=== PATIENT | male | born 1990 | race Caucasian/White ===

== ENCOUNTER 2017-03-31 20:38 | Emergency (ER) | payer SELFPAY ==
--- NOTE | 2017-03-31 21:04 | EDM.PDOC ---
ED HPI GENERAL MEDICAL PROBLEM - General Chief Complaint: Genitourinary Problem Stated Complaint: "Penis Injury Time Seen by Provider: 03/31/17 20:42 Source of Information: Reports: Patient History Limitations: Reports: No Limitations - History of Present Illness INITIAL COMMENTS - FREE TEXT/NARRATIVE: This patient is a 27 year old male that presents to the ER. Patient reports that he was having sex with his girlfriend 4 days ago. Patient reports she was on top, the penis came out of her, then she went back down on top of him bending his penis. Patient reports he had some pain with this action. Patient reports there was no popping, or sounds. Patient reports they continued intercourse. Patient reports he felt some swelling the next day and pain to shaft of penis. Patient reports that the swelling has gone down. Patient reports he had sex again last night with mild pain. Patient reports the pain is improving. Patient denies bruising. Patient reports able to have erection without difficulty. Denies any other pain or injury. No pain to testes. Denies n , v, d, f, hematuria. Onset Date: 03/27/17 Duration: Day(s): (4) Location: Reports: Other (Penis) Quality: Reports: Ache Severity: Mild Improves with: Reports: None Worsens with: Reports: Other (sex) Associated Symptoms: Denies: Confusion, Chest Pain, Cough, cough w sputum, Diaphoresis, Fever/Chills, Headaches, Loss of Appetite, Malaise, Nausea/Vomiting , Rash, Seizure, Shortness of Breath, Syncope, Weakness - Related Data Allergies Allergy/AdvReac Type Severity Reaction Status Date / Time No Known Allergies Allergy Verified 09/25/14 21:48 Home Meds: Home Meds Ibuprofen 1 - 2 tab PO Q6H PRN 09/25/14 [History] Past Medical History - Past Health History Medical/Surgical History: Denies Medical/Surgical History Social & Family History - Family History Family Medical History: Noncontributory - Tobacco Use Smoking Status *Q: Current Every Day Smoker Years of Tobacco use: 16 Packs/Tins Daily: 1 - Recreational Drug Use Recreational Drug Use: No ED ROS GENERAL - Review of Systems Review Of Systems: See Below Constitutional: Reports: No Symptoms HEENT: Reports: No Symptoms Respiratory: Reports: No Symptoms Cardiovascular: Reports: No Symptoms Endocrine: Reports: No Symptoms GI/Abdominal: Reports: No Symptoms : Reports: Pain (penile shaft mild pain). Denies: Discharge, Dysuria, Flank Pain, Frequency, Hematuria, Incontinence, Urgency, Urinary Retention Musculoskeletal: Reports: No Symptoms Skin: Reports: No Symptoms Neurological: Reports: No Symptoms Psychiatric: Reports: No Symptoms Hematologic/Lymphatic: Reports: No Symptoms Immunologic: Reports: No Symptoms ED EXAM, GI/ABD - Physical Exam Exam: See Below Exam Limited By: Uncooperative General Appearance: Alert, WD/WN, No Apparent Distress Respiratory/Chest: No Respiratory Distress, Lungs Clear, Normal Breath Sounds, No Accessory Muscle Use Cardiovascular: Normal Peripheral Pulses, Regular Rate, Rhythm, No Edema, No Gallop, No JVD, No Murmur, No Rub GI/Abdominal Exam: Soft, Non-Tender, No Organomegaly, No Distention, No Abnormal Bruit, No Mass, Pelvis Stable (Male) Exam: No Hernia, Normal Inspection, Circumcised, Other (No soft tissue swelling, no penile ecchymosis, no hematoma. Not abnormally curved, not S shaped. No penis deviation to one side or the other. No external urethral damage. Penis is Not tender to touch. No rolling sign with penile skin roll. ). No: Hernia, Inguinal Lymphadenopathy, Penile Lesions, Rash, Scrotal Swelling, Scrotum Tenderness (L), Scrotum Tenderness (R), Suprapubic Fullness, Testicular Mass, Testicular Tenderness (L), Testicular Tenderness (R), Urethral Discharge Rectal (Males) Exam: Deferred Back Exam: Normal Inspection, Full Range of Motion. No: CVA Tenderness (L), CVA Tenderness (R) Extremities: Normal Inspection Neurological: Alert, Oriented Psychiatric: Normal Affect, Normal Mood Skin Exam: Warm, Dry, Intact, Normal Color, No Rash Lymphatic: No Adenopathy Departure - Departure Time of Disposition: 21:02 Disposition: Home, Self-Care 01 Condition: Good Clinical Impression: Contusion of penis, initial encounter - Discharge Information Instructions: Contusion, [id number] Forms: ED Department Discharge Additional Instructions: No sexual activity for at least 1 week. Until pain is resolved. Followup with your primary care provider as needed/Urologist if pain continues Ibuprofen for pain Return to the ER for worsening of condition or any emergent concerns - Assessment/Plan Plan: PLEASE SEE RN NOTE FOR PFSH.
[2017-04-01 02:01] VITALS: BP 144/86
== END 2017-03-31 21:10 | disposition home or self-care (01) ==
LOC: CC.ED 20:38
DX: S30.21XA Contusion of penis, initial encounter (principal); F17.210 Nicotine dependence, cigarettes, uncomplicated; X58.XXXA Exposure to other specified factors, initial encounter
CPT/HCPCS: 99282